=== PATIENT | male | born 1990 | race Two or more races ===

== ENCOUNTER 2023-01-15 00:35 | Emergency (ER) | payer MEDICAID, SELFPAY ==
--- NOTE | 2023-01-15 00:27 | ECG_ITS ---
APPROVED REPORT Exam: Resting ECG HR:119 bpm ECG Measurements Heart Rate 119 AXES NV 116 P 52 QRSd 91 QRS 101 QT 329 T 37 QTc 400 Conclusion SINUS TACHYCARDIA WITH SHORT NV INTERVAL RIGHT AXIS DEVIATION [QRS AXIS > 100] NONSPECIFIC ST ELEVATION [0.05+ mV ST ELEVATION] ABNORMAL ECG UNCONFIRMED REPORT Electronically signed by : Doni Blanc MD 01/16/2023 15:52:10
[2023-01-15 00:36] VITALS: BP 155/94; PULSE 122; RESP 14; TEMP 36.6; O2SAT 98; BMI 27.7
[2023-01-15 01:00] VITALS: BP 150/86; PULSE 97; O2SAT 99
--- NOTE | 2023-01-15 01:15 | [facility].EDGENADL ---
Discharge Plan Disposition Patient Disposition: Home, Self-Care Condition: Good Prescriptions Prescriptions: No Action No Known Home Medications Clinical Impressions Clinical Impression: Opiate overdose Discharge ED Provider: Christophe John Adult HPI General Chief complaint: Overdose Stated complaint: overdose Time Seen by Provider: 01/15/23 00:38 Mode of Arrival: EMS Source of Information: Patient Limitations: No Limitations Description of Symptoms (Recalled from ER Triage Doc. by RN): pt reports he took heroin and what ever it was mixed with and he took to much History of Present Illness HPI narrative: 32-year-old male reportedly previously healthy presents with apparent opiate overdose. Patient reports that he snorted some drugs but thinks he took too much. He was given 2 mg of IV Narcan by EMS upon their arrival. He immediately awoke and feels somewhat nauseous but otherwise has no acute complaints. He denies any chest pain headache shortness of breath dizziness. Denies any other concomitant drug use besides marijuana. Related Data Home Medications Medication Instructions Recorded Confirmed No Known Home Medications 01/15/23 01/15/23 Allergies Allergy/AdvReac Type Severity Reaction Status Date / Time No Known Allergies Allergy Verified 01/15/23 00:46 [facility] Disclaimer: The information contained in this section may have been updated after the patient was seen, as this information can be updated by other users. Social History Smoking Status: Current every day smoker alcohol intake: never current occupational status: other Travel in the last 8 weeks: None ROS Obtained: Yes All systems reviewed & no additional complaints except as documented Physical Exam General General appearance: alert and in no apparent distress Head Head exam: atraumatic and normocephalic Eye Eye exam: Present normal appearance, PERRL and EOMI ENT ENT exam: Present normal oropharynx and normal external ear exam Neck Neck exam: Present normal inspection and full ROM Chest Chest inspection: Present normal inspection and symmetric chest wall rise; Absent tenderness Respiratory Respiratory exam: Present normal lung sounds bilaterally; Absent respiratory distress Cardiovascular Cardiovascular exam: Present normal rhythm and tachycardia Abdominal Exam Abdominal exam: Present soft; Absent distention, tenderness or guarding Extremities Exam Extremities exam: Present normal inspection; Absent edema or joint swelling Back Exam Back exam: Present normal inspection; Absent tenderness Neurological Exam Neurological exam: Present alert and oriented X3; Absent motor sensory deficit Psychiatric Psychiatric exam: Present normal affect and normal mood Skin Skin exam: Present warm, dry and normal color Lymphatic Lymphatic Findings: no adenopathy Medical Decision Making Medical Records Medical records reviewed: Yes I reviewed the patient's medical records. García Inquiry Pt receiving controlled substance: No García was queried for this patient: No Vital Signs: 01/15/23 00:36 01/15/23 01:00 01/15/23 01:20 Temperature 97.9 F 97.9 F Temperature Source Oral Oral Pulse Rate 97 H 91 H Pulse Rate [Left] 122 H Respiratory Rate 14 14 Blood Pressure 150/86 H 151/72 H Blood Pressure [Right Arm] 155/94 H Blood Pressure Mean [Right Arm] 114 02 Sat by Pulse Oximetry 98 99 Oxygen Delivery Method Room Air Lab Data Lab results reviewed: Yes I reviewed the patient's lab results. Medical Decision Narrative: 32-year-old male presents after accidental opiate overdose.. History was obtained via conversation with patient, EMS, police. On arrival, patient is [afebrile, hemodynamically stable] [alert, oriented x4, appropriate, GCS 15], moving all extremities spontaneously, pupils equal and reactive to light. Full physical exam performed and significant for no significant physical exam
[2023-01-15 01:20] VITALS: BP 151/72; PULSE 91; RESP 14; TEMP 36.6; O2SAT 99
== END 2023-01-15 01:20 | disposition home or self-care (01) ==
LOC: ER 01:36
PROVIDERS: Emergency Provider Emergency Medicine
DX: T40.2X1A Poisoning by other opioids, accidental (unintentional), initial encounter (principal); R00.0 Tachycardia, unspecified; F17.200 Nicotine dependence, unspecified, uncomplicated
CPT/HCPCS: 93005; 99284